=== PATIENT | female | born 1985 | race Caucasian/White ===

== ENCOUNTER 2017-06-03 15:52 | Emergency (ER) | payer OTHER ==
[2017-06-03] MEDS ORDERED: SODIUM CHLORIDE 0.9% 1,000 ML IV ONE ×2 (16:08)
[2017-06-03] MEDS ORDERED: diphenhydrAMINE INJ 50 MG/ML VIAL IVP STA (16:09)
[2017-06-03] MEDS ORDERED: methylPREDNISolone SUCCINATE 125 MG/2 ML VIAL IVP STA (16:09)
--- NOTE | 2017-06-03 16:11 | ED Physician Documentation ---
History of Present Illness - Stated complaint Stated Complaint: ALLERGY SHOT REACTION - Chief complaint Chief Complaint: Allergic Rx - History obtained from History obtained from: Patient, EMS - History of Present Illness Timing: How many hours ago (1) Pain level max: 0 Pain level now: 0 Improved by: epipen Worsened by: "allergy injections" - Additonal information Additional information: Patient is a 31-year-old female who was receiving her biweekly allergy injections today, higher dose than usual today. She developed hives, difficulty breathing and apparent anaphylaxis. Treated with an EpiPen and brought here. She currently is feeling lightheaded and dizzy, hives have resolved. Does not feel like her throat is swelling. Has not taken her allergy medications today. Review of Systems Ten Systems: 10 systems reviewed and negative Constitutional: denies: Fever, Chills Ears: denies: Ear pain Nose: denies: Rhinorrhea / runny nose, Congestion Throat: denies: Sore throat Cardiac: denies: Chest pain / pressure Respiratory: denies: Dyspnea, Cough, Hemoptysis, Wheezing GI: denies: Vomiting, Diarrhea : reports: Control (IUD). denies: Dysuria, Frequency, Hesitancy, Now EGA Skin: denies: Rash Musculoskeletal: denies: Neck pain, Back pain Neurologic: denies: Headache PD PAST MEDICAL HISTORY - Past Medical History Past Medical History: Yes Cardiovascular: None Respiratory: None Neuro: None Endocrine/Autoimmune: None GI: None : Frequency HEENT: None Psych: Depression, Anxiety, Obsessive compulsive disorder Musculoskeletal: None Derm: None - Past Surgical History Past Surgical History: Yes General: Appendectomy - Present Medications Home Medications: Ambulatory Orders Medication Instructions Recorded Confirmed Fexofenadine HCl [Audra Allergy] 180 mg PO DAILY 07/17/15 07/17/15 Montelukast [Singulair] 10 mg PO DAILY 07/17/15 07/17/15 Epinephrine [Epipen 2-Davi] 0.3 mg IJ ONCE PRN #1 auto.injct 06/03/17 predniSONE [Prednisone] 40 mg PO DAILY #10 tablet 06/03/17 - Allergies Allergies/Adverse Reactions: Allergies Allergy/AdvReac Type Severity Reaction Status Date / Time tramadol HCl * [From Ultram] AdvReac Nausea Verified 05/25/15 20:16 - Social History Does the pt smoke?: No Smoking Status: Never smoker Does the pt drink ETOH?: No Does the pt have substance abuse?: No - Immunizations Immunizations are current?: Yes - POLST Patient has POLST: No PD ED PE NORMAL - Vitals Vital signs reviewed: Yes - General General: Alert and oriented X 3, No acute distress, Well developed/nourished - HEENT HEENT: PERRL, Moist mucous membranes, Pharynx benign - Neck Neck: Supple, no meningeal sign - Cardiac Cardiac: RRR, Strong equal pulses - Respiratory Respiratory: No respiratory distress, Clear bilaterally, Other (no wheezing or stridor) - Abdomen Abdomen: Soft, Non tender, Non distended - Back Back: No spinal TTP - Derm Derm: Warm and dry, No rash - Extremities Extremities: No edema - Neuro Neuro: Alert and oriented X 3 - Psych Psych: Normal mood, Normal affect Results - Vitals Vitals: Vital Signs - 24 hr 06/03/17 06/03/17 06/03/17 15:52 16:56 17:13 Temperature 36.8 C Heart Rate 87 78 92 Respiratory 16 18 18 Rate Blood Pressure 116/61 111/60 99/59 L O2 Saturation 100 100 100 Oxygen O2 Source Room air PD MEDICAL DECISION MAKING - ED course Complexity details: reviewed results, re-evaluated patient, considered differential, d/w patient, d/w family ED course: No recurrence of symptoms in the emergency department. Epinephrine was allowed to wear off. Hypotension resolved with IV fluids. No recurrent hypotension (80 /60 intially on my exam). Lungs are clear to auscultation bilaterally on serial exam. Will continue steroids for the next few days and prescribe an EpiPen for home. She is well-appearing, nontoxic. Afebrile. Patient and family counseled regarding signs and symptoms for which I believe and urgent re- evaluation would be necessary. Patient with good understanding of and agreement to plan and is comfortable going home at this time This document was made in part using voice recognition software. While efforts are made to proofread this document, sound alike and grammatical errors may occur. Departure - Departure Disposition: 01 Home, Self Care Clinical Impression: Anaphylaxis Qualifiers: Encounter type: initial encounter Qualified Code(s): T78.2XXA - Anaphylactic shock, unspecified, initial encounter Condition: Good Instructions: ED Anaphylaxis General Follow-Up: Brian Zuniga DO [Primary Care Provider] - Within 1 week Prescriptions: Epinephrine [Epipen 2-Davi] 0.3 mg IJ ONCE PRN #1 auto.injct PRN Reason: Anaphylaxis predniSONE [Prednisone] 40 mg PO DAILY #10 tablet Comments: Return if you worsen. Continue the steroids for next 3-5 days. Discharge Date/Time: 06/03/17 17:28
[2017-06-03] MEDS ORDERED: predniSONE 20 MG TABLET PO STA (17:07)
[2017-06-03 17:14] VITALS: BP 99/59
== END 2017-06-03 17:28 | disposition home or self-care (01) ==
LOC: EDUNIT# → ED 15:52
DX: T80.52XA Anaphylactic reaction due to vaccination, initial encounter (principal); Y84.8 Other medical procedures as the cause of abnormal reaction of the patient, or of later complication, without mention of misadventure at the time of the procedure; Y92.538 Other ambulatory health services establishments as the place of occurrence of the external cause
CPT/HCPCS: 96361; 96374; 99283; 99284; J7512

== ENCOUNTER 2017-12-18 10:30 | Emergency (ER) | payer OTHER ==
--- NOTE | 2017-12-18 12:08 | ED Physician Documentation ---
PD HPI URI - Stated complaint Stated Complaint: VOMITING/DIZZY - Chief complaint Chief Complaint: General - History obtained from History obtained from: Patient - History of Present Illness Timing - onset: How many weeks ago (2-3 weeks of sinus pressure and congestion, presumed environmental allergies, which is worse the past few days with pressure in her ears and today some vertigo with head movement.) Timing duration: Weeks Timing details: Gradual onset Associated symptoms: Nasal congestion, Sinus pain, Sore throat, NVD (nausea and vomiting wiht the vertigo earlier today). No: Fever, Chills, Swollen nodes, Dry cough Worsened by: Activity Similar symptoms before: Has not had sx before Recently seen: Not recently seen Review of Systems Constitutional: denies: Fever, Chills, Myalgias Ears: reports: Ear pain. denies: Tinnitus/ringing Nose: reports: Rhinorrhea / runny nose, Congestion, Sinus pressure / pain Throat: reports: Sore throat (the past few days) Respiratory: denies: Dyspnea, Cough GI: reports: Nausea PD PAST MEDICAL HISTORY - Past Medical History Cardiovascular: None Respiratory: None Endocrine/Autoimmune: None GI: None : Frequency HEENT: None Psych: Depression, Anxiety, Obsessive compulsive disorder Musculoskeletal: None Derm: None - Past Surgical History Past Surgical History: Yes General: Appendectomy - Present Medications Home Medications: Ambulatory Orders Medication Instructions Recorded Confirmed Montelukast [Singulair] 10 mg PO DAILY 07/17/15 07/17/15 Epinephrine [Epipen 2-Davi] 0.3 mg IJ ONCE PRN #1 auto.injct 06/03/17 Amoxicillin 500 mg PO TID #20 capsule 12/18/17 Dexamethasone [Decadron] 4 mg PO DAILY #5 tablet 12/18/17 Loratadine [Claritin] 12/18/17 Meclizine [Antivert] 25 mg PO Q6H PRN #30 tablet 12/18/17 - Allergies Allergies/Adverse Reactions: Allergies Allergy/AdvReac Type Severity Reaction Status Date / Time tramadol HCl * [From Ultram] AdvReac Nausea Verified 12/18/17 10:40 - Social History Does the pt smoke?: No Smoking Status: Never smoker Does the pt drink ETOH?: No Does the pt have substance abuse?: No - Immunizations Immunizations are current?: Yes - POLST Patient has POLST: No PD ED PE NORMAL - Vitals Vital signs reviewed: Yes - General General: Alert and oriented X 3, No acute distress, Well developed/nourished - HEENT HEENT: Moist mucous membranes, Pharynx benign. No: Ears normal (TMs red and have fullness.) - Neck Neck: Supple, no meningeal sign, No adenopathy - Cardiac Cardiac: RRR, No murmur - Respiratory Respiratory: Clear bilaterally - Abdomen Abdomen: Soft, Non tender - Derm Derm: Normal color, Warm and dry - Neuro Neuro: Alert and oriented X 3, No motor deficit, Normal speech Results - Vitals Vitals: Vital Signs - 24 hr 12/18/17 12/18/17 10:39 12:49 Temperature 36.4 C L 36.1 C L Heart Rate 75 73 Respiratory 20 22 Rate Blood Pressure 107/68 99/67 O2 Saturation 100 100 Oxygen O2 Source Room air PD MEDICAL DECISION MAKING - ED course Complexity details: considered differential (sounds like URI/sinus with inner and middle ear pressure.), d/w patient - Sepsis Event Vital Signs: Vital Signs - 24 hr 12/18/17 12/18/17 10:39 12:49 Temperature 36.4 C L 36.1 C L Heart Rate 75 73 Respiratory 20 22 Rate Blood Pressure 107/68 99/67 O2 Saturation 100 100 Oxygen O2 Source Room air Departure - Departure Disposition: 01 Home, Self Care Clinical Impression: Acute sinusitis Qualifiers: Sinusitis location: unspecified location Recurrence: non-recurrent Qualified Code(s): J01.90 - Acute sinusitis, unspecified Labyrinthitis Qualifiers: Laterality: unspecified laterality Qualified Code(s): H83.09 - Labyrinthitis, unspecified ear Condition: Stable Record reviewed to determine appropriate education?: Yes Instructions: ED Labyrinthitis, ED Sinusitis Abx Tx Follow-Up: Brian Zuniga DO [Primary Care Provider] - Prescriptions: Amoxicillin 500 mg PO TID #20 capsule Dexamethasone [Decadron] 4 mg PO DAILY #5 tablet Meclizine [Antivert] 25 mg PO Q6H PRN #30 tablet PRN Reason: Vertigo Comments: This sounds like a sinus inflammation or infection with extension into the inner ear which controls balance. We will treated with Decadron steroid for the next 5 days. Amoxicillin antibiotic for a week. Add meclizine if needed for dizziness. Continue your other usual medicines. Recheck if not improved over the next few days. Forms: Activity restrictions Discharge Date/Time: 12/18/17 12:47
[2017-12-18] MEDS ORDERED: MECLIZINE 12.5 MG TABLET PO STA (12:22)
[2017-12-18] MEDS ORDERED: DEXAMETHASONE 10 MG/ML VIAL PO STA (12:22)
[2017-12-18] MEDS ORDERED: AMOXICILLIN 250 MG CAPSULE PO STA (12:22)
[2017-12-18] MEDS ORDERED: CHERRY SYRUP 10 ML UDC PO ONE (12:27)
[2017-12-18 12:49] VITALS: BP 99/67
== END 2017-12-18 12:47 | disposition home or self-care (01) ==
LOC: ED 10:30
DX: J01.90 Acute sinusitis, unspecified (principal); H83.09 Labyrinthitis, unspecified ear
CPT/HCPCS: 99283; A9270